=== PATIENT | male | born 1980 | race Caucasian/White ===

== ENCOUNTER 2020-06-01 16:59 | Emergency (ER) | payer OTHER, SELFPAY ==
[2020-06-01 17:06] VITALS: BP 127/96; PULSE 79; RESP 18; TEMP 36.4; O2SAT 97; BMI 23.5
--- NOTE | 2020-06-01 17:12 | ED_ITS ---
HPI - General Adult General Chief complaint: Overdose Stated complaint: 0d Time Seen by Provider: 06/01/20 17:02 Source: patient Mode of arrival: EMS Limitations: no limitations History of Present Illness HPI narrative: Patient comes to the emergency room by EMS. Patient states that he was sleeping taking a nap in his truck, the police knocked on his window, patient woke up and he was brought to the emergency room, as overdose was suspected. Patient did not use any Narcan, patient was easily woken up. Patient denies using drugs. MD complaint: Found sleeping in his truck Related Data Allergies Allergy/AdvReac Type Severity Reaction Status Date / Time aspirin [ASPIRIN] Allergy Unknown UNKNOWN Unverified 04/04/20 17:31 erythromycin base Allergy Difficulty Verified 06/01/20 17:05 Breathing Review of Systems Review of Systems: Constitutional : No Weight loss, No Fever, No Chills, No Night Sweats, No Fatigue, No Malaise ENT/Mouth : No Hearing loss, No Ear Pain, No Nasal Congestion, No Sinus Pain, No Hoarseness, No sore throat, No Rhinorrhea, No Swallowing Difficulty Eyes: No Eye Pain, No Swelling, No Redness, No Foreign Body, No Discharge, No Vision Changes Cardiovascular : No Chest Pain, No SOB, No Dyspnea on Exertion, No Orthopnea, No Edema, No Palpitations Respiratory : No Cough, No Sputum, No Wheezing, No Smoke Exposure, No Dyspnea Gastrointestinal : No Nausea, No Vomiting, No Diarrhea, No Constipation, No abdominal Pain, No Hematochezia, No Melena Genitourinary : no irregular bleeding, No Dysuria, No Urinary Frequency, No Hematuria, No Urinary Incontinence, No Urgency, No Flank Pain, No Urinary Flow Changes, No Hesitancy Musculoskeletal : No joint pain, No Myalgias, No Joint Swelling Skin : No Skin Lesions, No rash Neuro : No Weakness, No Numbness, No Paresthesias, No Loss of Consciousness, No Dizziness, No Headache Psych : No Anxiety/Panic, No Depression, No SI/HI/AH/VH, No Social Issues, Heme/Lymph: No Bruising, No Bleeding,No Lymphadenopathy Endocrine : No Polyuria, No Polydipsia, No Temperature Intolerance [facility] Past Medical History Medical History (Updated 06/01/20 @ 19:20 by Serenity Pineda MD) No known health problems Social History Social History Alcohol intake: unknown Smoking Status: Current every day smoker Use of substances other than those prescribed or required for medical reasons: Yes Advance Directives: No Advance Directives Information Provided: No Physical Exam Vital Signs: Vital Signs: Last Vital Signs Temp 97.6 F 06/01/20 17:06 Pulse 79 06/01/20 17:06 Resp 18 06/01/20 18:46 BP 127/96 H 06/01/20 17:06 Pulse Ox 98 06/01/20 18:46 Body Mass Index 23.5 Appearance: Alert. Oriented X3. No acute distress. patient does seem somnolent, patient is calm, cooperative Eyes: Pupils equal, round and reactive to light. ENT: Pharynx normal. Neck: Normal inspection. Neck supple. No lymph nodes noted. No crepitus CVS: Normal heart rate and rhythm. Pulses normal. Normal S1 and S2 Respiratory: No respiratory distress. Breath sounds normal. No Wheezing. No rales Abdomen: Soft and nontender. No rigidity. No distention. good BS x4 Skin: Skin warm and dry. Normal skin color. Normal skin turgor. Extremities: No lower extremity edema. No lower extremity edema. No Lacerations. No Rash Neuro: Oriented X 3. No motor deficit. No sensory deficit. Moving all extermities. No slurred speech. Course Course Course Narrative: patient remains alert and oriented x3, how weak. Patient ready for discharge. Patient is able to walk unassisted with steady gait. Lee macias tolerated p.o. well, no physical complaints Discharge Plan Discharge Clinical Impression: Somnolence Patient Disposition: Home, Self-Care Additional Instructions: Please follow-up with your primary care physician tomorrow. If you have any worsening or new symptoms, please return to the emergency room or call 911
[2020-06-01 18:46] VITALS: RESP 18; O2SAT 98
--- NOTE | 2020-06-01 19:16 | PC.NURSE ---
Patient awake and slightly agitated and wants to be discharged home. MD aware of patient's request to be discharged home. Patient states that he is sober. Patient asked and given a phone so that he may find a ride to bring him down to the police station in order to get his keys back.
== END 2020-06-01 19:42 | disposition home or self-care (01) ==
PROVIDERS: Emergency Provider Emergency Medicine
DX: R40.0 Somnolence (principal); F17.200 Nicotine dependence, unspecified, uncomplicated; Z71.6 Tobacco abuse counseling
CPT/HCPCS: 99283; 99285

== ENCOUNTER 2021-02-03 14:01 | Emergency (ER) | payer OTHER, SELFPAY ==
[2021-02-03 14:48] VITALS: BP 115/60; PULSE 56; RESP 19; TEMP 36.6; O2SAT 99; BMI 22.8
[2021-02-03] MEDS: Acetaminophen 325 MG TABLET 650 MG PO (14:54)
--- NOTE | 2021-02-03 16:12 | ED_ITS ---
HPI - Skin/Abscess/Foreign Bdy General Chief complaint: Skin/Abscess/Foreign Body Stated complaint: BLEEDING FROM BELLY BUTTON Source: patient Mode of arrival: ambulatory Limitations: no limitations History of Present Illness HPI narrative: 40-year-old male with no significant past medical history presents with 1 day of umbilical drainage, and approximately 3 days of tenderness to the umbilical site. He does not report fevers, chills, chest pain or pressure, palpitations, shortness of breath, abdominal pain, abdominal distention, dysuria, hematuria, or any other concerning symptoms. Onset (ago): day(s) (1) Tetanus up to date: yes Severity: mild Severity scale (1-10): 3 Quality: burning Pain Consistency: constant Relieving factors: none Exacerbating factors: palpation and movement Context: none Associated symptoms: denies other symptoms Treatments prior to arrival: none Related Data Previous Rx's Medication Instructions Recorded amoxicillin-pot clavulanate 1 tab PO Q12H 7 Days #14 tab 02/03/21 [Augmentin] Allergies Allergy/AdvReac Type Severity Reaction Status Date / Time aspirin [ASPIRIN] Allergy Unknown UNKNOWN Verified 02/03/21 16:33 erythromycin base Allergy Difficulty Verified 02/03/21 16:33 Breathing Review of Systems Review of Systems: Constitutional: No Fever, No Chills ENT/Mouth: No Ear Pain, No Hoarseness, No sore throat Eyes: No Eye Pain, No Swelling, No Redness, No Foreign Body Cardiovascular: No Chest Pain, No SOB Respiratory: No Cough, No Dyspnea Gastrointestinal: No Nausea, No Vomiting, No Diarrhea, No abdominal Pain Genitourinary: No Dysuria, No Hematuria Musculoskeletal: No joint pain, No Myalgias, No Joint Swelling Skin: Positive redness, drainage and irritation to the umbilicus, No Skin lacerations, No rash Neuro: No Weakness, No Numbness, No Paresthesias, No Loss of Consciousness, No Dizziness, No Headache Psych: No Anxiety/Panic, No Depression Heme/Lymph: no easy bruising, no Lymphadenopathy Endocrine: No Polyuria, No Polydipsia Yes all other systems are reviewed and are negative [facility] Past Medical History Attestation statement: The following information was validated with the patient. Source: old records reviewed Medical History No known health problems Social History Social History Alcohol intake: never Patient Tobacco Use Status: Current everyday Tobacco user Use of substances other than those prescribed or required for medical reasons: No Advance Directives: No Advance Directives Information Provided: No Physical Exam Vital Signs: Vital Signs: Last Vital Signs Temp 97.9 F 02/03/21 14:48 Pulse 56 02/03/21 14:48 Resp 19 02/03/21 14:48 BP 115/60 02/03/21 14:48 Pulse Ox 99 02/03/21 14:48 Body Mass Index 22.8 Appearance: Alert. Oriented X3. No acute distress. Eyes: Pupils equal, round and reactive to light. ENT: Pharynx normal. Neck: Normal inspection. Neck supple. CVS: Normal heart rate and rhythm. Pulses normal. Respiratory: No respiratory distress. Breath sounds normal. Abdomen: Soft and nontender. Skin: Approximately 1 cm in diameter area of erythema around the umbilicus, purulent drainage from the site. Skin warm and dry. Normal skin color. Normal skin turgor. Extremities: No lower extremity edema. Neuro: No motor deficit. No sensory deficit. Course Course Course Narrative: 40-year-old male who presents with drainage and redness to the umbilicus. Purulent drainage tubes noted with some bleeding, I did irrigate the umbilicus multiple pieces of hair and debris removed, flushed with copious amounts of normal saline with half hydrogen peroxide. Patient tolerated procedure well. Will give Augmentin for cellulitis. Patient verbalized understanding of and agrees to plan of care discharge home MDM - Skin/Abscess/Foreign Bdy Differential Diagnosis Differential diagnosis: Likely abscess of skin or subcutaneous tissue and cellulitis Medical Records Attestation: I reviewed the patient's medical records. Discharge Plan Discharge Clinical Impression: Cellulitis Qualifiers: Site of cellulitis: trunk Site of cellulitis of trunk: umbilicus Qualified Code(s): L03.316 - Cellulitis of umbilicus Patient Disposition: Home, Self-Care Instructions: Cellulitis (ED) Additional Instructions: You were evaluated for cellulitis and drainage from the umbilicus. We irrigated out your belly button, you had several pieces of hair stuck inside there, which is what caused the reaction. Please take Augmentin twice a day for the next 7 days. Use Tylenol and Motrin as needed for pain management. Thank you for choosing this emergency department for evaluation. Please follow-up with primary care physician as needed. Return to the emergency department for any new, concerning, or worsening symptoms. Prescriptions: New amoxicillin-pot clavulanate [Augmentin] 875-125 mg tablet 1 tab PO Q12H 7 Days Qty: 14 RF: 0
--- NOTE | 2021-02-03 16:31 | PC.NURSE ---
Umbilicus cleansed by PA at bedside. Pt reports feeling better already . Plan for abx and DC home with education on hygiene at home.
[2021-02-03] MEDS: Amoxicillin/Potassium Clav 875 MG TABLET PO (16:42)
== END 2021-02-03 16:44 | disposition home or self-care (01) ==
PROVIDERS: Emergency Provider Internal Medicine; PCP Internal Medicine
DX: L03.316 Cellulitis of umbilicus (principal)
CPT/HCPCS: 99284